=== PATIENT | female | born 1990 | race Caucasian/White ===

== ENCOUNTER 2016-10-21 21:31 | Emergency (ER) | payer SELFPAY ==
[2016-10-21 22:01] VITALS: BP 110/76; RESP 20; TEMP 100.7
[2016-10-21] MEDS ORDERED: IPRATROPIUM-ALBUTEROL 3 ML NEB INHALATION STA (22:21)
[2016-10-21] MEDS ORDERED: ACETAMINOPHEN TAB 500 MG TAB PO STA (22:32)
--- NOTE | 2016-10-21 22:36 | XR ---
EXAMINATION TYPE: XR chest 2V DATE OF EXAM: 10/21/2016 10:33 PM COMPARISON: NONE HISTORY: Cough and chest pain TECHNIQUE: Frontal and lateral views of the chest are obtained. FINDINGS: Heart and mediastinum are normal. Lungs are clear. Diaphragm is normal. Bony thorax and so ft tissues appear normal. IMPRESSION: Normal chest
[2016-10-21 22:54] VITALS: PULSE 84
--- NOTE | 2016-10-21 22:55 | ED ---
General Adult HPI - General Chief complaint: ENT Stated complaint: SOB Time Seen by Provider: 10/21/16 22:06 Source: patient, RN notes reviewed Mode of arrival: ambulatory Limitations: no limitations - History of Present Illness Initial comments: 26-year-old female presents emergency Department chief complaint of cough, fever started yesterday getting worse today. Patient's states her cough is nonproductive dry. Patient does have a history of asthma. She's had some wheezing. Denies any recent Tylenol Motrin. Patient states she has a nose denies sore throat, ear pain, headache, dizziness. Patient had multiple sick contacts. - Related Data Home Medications Medication Instructions Recorded Confirmed diphenhydrAMINE [Benadryl] 25 mg PO BID PRN 10/21/16 10/21/16 Previous Rx's Medication Instructions Recorded Oseltamivir [Tamiflu] 75 mg PO Q12HR #10 cap 10/21/16 Allergies Allergy/AdvReac Type Severity Reaction Status Date / Time No Known Allergies Allergy Verified 09/08/15 04:59 Review of Systems ROS Statement: Those systems with pertinent positive or pertinent negative responses have been documented in the HPI. ROS Other: All systems not noted in ROS Statement are negative. Past Medical History Past Medical History: Asthma History of Any Multi-Drug Resistant Organisms: None Reported Past Surgical History: No Surgical Hx Reported Past Psychological History: No Psychological Hx Reported Smoking Status: Current every day smoker Past Alcohol Use History: None Reported Past Drug Use History: None Reported General Exam Limitations: no limitations General appearance: alert, in no apparent distress Head exam: Present: atraumatic, normocephalic, normal inspection ENT exam: Present: normal exam, normal oropharynx, mucous membranes moist, TM's normal bilaterally, normal external ear exam Neck exam: Present: normal inspection, full ROM. Absent: tenderness, meningismus, lymphadenopathy Respiratory exam: Present: respiratory distress. Absent: wheezes, rales, rhonchi, stridor Cardiovascular Exam: Present: normal rhythm, tachycardia, normal heart sounds. Absent: systolic murmur, diastolic murmur, rubs, gallop, clicks Neurological exam: Present: alert, oriented X3, CN II-XII intact Skin exam: Present: warm, dry, intact, normal color. Absent: rash Course Vital Signs 10/21/16 10/21/16 21:58 22:49 Temperature 100.7 F H Pulse Rate 109 H 100 Respiratory 20 Rate Blood Pressure 110/76 O2 Sat by Pulse 98 Oximetry Medical Decision Making - Medical Decision Making 26-year-old female presented for fever cough. Patient has influenza B. Patient was started on Tamiflu. Return parameters were discussed. - Lab Data Lab Results 10/21/16 Range/Units 22:10 Influenza Type A RNA Not Detected (Not Detectd) Influenza Type B (PCR) Detected H (Not Detectd) Disposition Clinical Impression: Influenza B Disposition: HOME SELF-CARE Condition: Stable Instructions: Influenza (ED) Additional Instructions: Please return to the Emergency Department if symptoms worsen or any other concerns. Prescriptions: Oseltamivir [Tamiflu] 75 mg PO Q12HR #10 cap Time of Disposition: 22:54
== END 2016-10-21 23:00 | disposition home or self-care (01) ==
LOC: EC 21:31
DX: J11.1 Influenza due to unidentified influenza virus with other respiratory manifestations (principal); F17.200 Nicotine dependence, unspecified, uncomplicated; Z87.09 Personal history of other diseases of the respiratory system
CPT/HCPCS: 71020; 87502; 94640; 99285

== ENCOUNTER 2020-02-26 02:28 | Emergency (ER) | payer OTHER ==
[2020-02-26] MEDS ORDERED: SULFAMETH-TMP DS STARTER PACK 2 TAB BTL PO STA (02:45)
[2020-02-26] MEDS ORDERED: MUPIROCIN 2% OINT 22 GM TUBE TOPICAL STA (02:45)
[2020-02-26] MEDS ORDERED: SULFAMETHOX-TMP 800-160MG 1 EACH TAB PO STA ×2 (02:45→02:49)
--- NOTE | 2020-02-26 02:48 | ED ---
Skin/Abscess/FB HPI - General Chief complaint: Skin/Abscess/Foreign Body Stated complaint: MRSA Time Seen by Provider: 02/26/20 02:38 Source: patient, RN notes reviewed, old records reviewed Mode of arrival: ambulatory Limitations: no limitations - History of Present Illness Initial comments: This is a 21-year-old female DF she does have history of drug abuse coming in for what she feels like maybe rash and extremities, patient has history of different bacterial infections, some of these wounds have been draining. Wound and abscesses, history of same MD complaint: abscess/boil -: week(s) Location: generalized, face Severity: mild Severity scale (1-10): 3 Quality: aching Consistency: constant Improves with: none Worsens with: none Context: none Associated symptoms: denies other symptoms - Related Data Home Medications Medication Instructions Recorded Confirmed diphenhydrAMINE [Benadryl] 25 mg PO BID PRN 10/21/16 10/21/16 Previous Rx's Medication Instructions Recorded Oseltamivir [Tamiflu] 75 mg PO Q12HR #10 cap 10/21/16 Sulfamethox-Tmp 800-160Mg [Bactrim 2 tab PO BID #40 tab 02/26/20 DS 800-160 mg] Allergies Allergy/AdvReac Type Severity Reaction Status Date / Time No Known Allergies Allergy Verified 02/26/20 02:35 Review of Systems ROS Statement: Those systems with pertinent positive or pertinent negative responses have been documented in the HPI. ROS Other: All systems not noted in ROS Statement are negative. Past Medical History Past Medical History: Asthma Additional Past Medical History / Comment(s): kidney disease History of Any Multi-Drug Resistant Organisms: None Reported Past Surgical History: No Surgical Hx Reported Past Psychological History: Bipolar, Depression Smoking Status: Current every day smoker Past Alcohol Use History: None Reported Past Drug Use History: Heroin General Exam - General Exam Comments Initial Comments: Multiple areas of abscess on face hands legs that aren't draining Limitations: no limitations General appearance: alert, in no apparent distress Head exam: Present: atraumatic, normocephalic, normal inspection Eye exam: Present: normal appearance, PERRL, EOMI. Absent: scleral icterus, conjunctival injection, periorbital swelling ENT exam: Present: normal exam, mucous membranes moist Neck exam: Present: normal inspection. Absent: tenderness, meningismus, lymphadenopathy Respiratory exam: Present: normal lung sounds bilaterally. Absent: respiratory distress, wheezes, rales, rhonchi, stridor Cardiovascular Exam: Present: regular rate, normal rhythm, normal heart sounds. Absent: systolic murmur, diastolic murmur, rubs, gallop, clicks GI/Abdominal exam: Present: soft, normal bowel sounds. Absent: distended, tenderness, guarding, rebound, rigid Extremities exam: Present: normal inspection, full ROM, normal capillary refill. Absent: tenderness, pedal edema, joint swelling, calf tenderness Back exam: Present: normal inspection Neurological exam: Present: alert, oriented X3, CN II-XII intact Psychiatric exam: Present: normal affect, normal mood Skin exam: Present: warm, dry, intact, normal color. Absent: rash Course Vital Signs 02/26/20 02/26/20 02:30 03:09 Temperature 97.8 F 98.4 F Pulse Rate 86 71 Respiratory 20 15 Rate Blood Pressure 115/78 123/71 O2 Sat by Pulse 100 94 L Oximetry Medical Decision Making - Medical Decision Making 29 female DF for evaluation patient is multiple areas of infection and abscess will treat on antibiotics and discharged home Disposition Clinical Impression: Cellulitis, Facial abscess, Axillary abscess, Folliculitis Disposition: HOME SELF-CARE Condition: Good Instructions (If sedation given, give patient instructions): Folliculitis (ED), Abscess (ED) Prescriptions: Sulfamethox-Tmp 800-160Mg [Bactrim DS 800-160 mg] 2 tab PO BID #40 tab Is patient prescribed a controlled substance at d/c from ED?: No Referrals: None,Stated [Primary Care Provider] - 1-2 days
[2020-02-26 03:15] VITALS: BP 123/71; PULSE 71; RESP 15; TEMP 98.4
== END 2020-02-26 03:15 | disposition home or self-care (01) ==
LOC: EC 02:28
DX: L02.01 Cutaneous abscess of face (principal); L02.412 Cutaneous abscess of left axilla; L02.411 Cutaneous abscess of right axilla; L73.9 Follicular disorder, unspecified; L03.90 Cellulitis, unspecified; L02.416 Cutaneous abscess of left lower limb; L02.415 Cutaneous abscess of right lower limb; F19.11 Other psychoactive substance abuse, in remission; F17.200 Nicotine dependence, unspecified, uncomplicated
CPT/HCPCS: 99283

== ENCOUNTER 2020-03-31 18:45 | Emergency (ER) | payer OTHER ==
[2020-03-31 18:50] VITALS: BP 109/62; PULSE 86; RESP 20; TEMP 97.6
--- NOTE | 2020-03-31 19:39 | ED ---
General Adult HPI - General Chief complaint: Back Pain/Injury Stated complaint: back pain Time Seen by Provider: 03/31/20 19:06 Source: patient, RN notes reviewed Mode of arrival: ambulatory Limitations: no limitations - History of Present Illness Initial comments: 29-year-old female with a past medical history of asthma, kidney disease presents to the emergency department for chief complaint of right low back pain. Patient states that this pain started earlier today. Patient does not recall any injury. Patient states pain radiates down the right leg. States that worsens with movement. Patient denies fevers or chills. Patient denies numbness or tingling in the lower extremities. Denies weakness of the lower extremities.Patient has no other complaints at this time including shortness of breath, chest pain, abdominal pain, nausea or vomiting, headache, or visual changes. - Related Data Home Medications Medication Instructions Recorded Confirmed diphenhydrAMINE [Benadryl] 25 mg PO BID PRN 10/21/16 10/21/16 Previous Rx's Medication Instructions Recorded Oseltamivir [Tamiflu] 75 mg PO Q12HR #10 cap 10/21/16 Sulfamethox-Tmp 800-160Mg [Bactrim 2 tab PO BID #40 tab 02/26/20 DS 800-160 mg] Allergies Allergy/AdvReac Type Severity Reaction Status Date / Time No Known Allergies Allergy Verified 03/31/20 18:50 Review of Systems ROS Statement: Those systems with pertinent positive or pertinent negative responses have been documented in the HPI. ROS Other: All systems not noted in ROS Statement are negative. Past Medical History Past Medical History: Asthma Additional Past Medical History / Comment(s): kidney disease History of Any Multi-Drug Resistant Organisms: None Reported Past Surgical History: No Surgical Hx Reported Past Psychological History: Bipolar, Depression Smoking Status: Current every day smoker Past Alcohol Use History: Occasional Past Drug Use History: Heroin, Marijuana, Methamphetamine General Exam Limitations: no limitations General appearance: alert, in no apparent distress Head exam: Present: atraumatic, normocephalic, normal inspection Eye exam: Present: normal appearance, PERRL, EOMI. Absent: scleral icterus, conjunctival injection, periorbital swelling ENT exam: Present: normal exam, mucous membranes moist Neck exam: Present: normal inspection, full ROM. Absent: tenderness, meningismus, lymphadenopathy Respiratory exam: Present: normal lung sounds bilaterally. Absent: respiratory distress, wheezes, rales, rhonchi, stridor Cardiovascular Exam: Present: regular rate, normal rhythm, normal heart sounds. Absent: systolic murmur, diastolic murmur, rubs, gallop, clicks GI/Abdominal exam: Present: soft, normal bowel sounds. Absent: distended, tenderness, guarding, rebound, rigid Extremities exam: Present: normal capillary refill (cap refill < 2 seconds, DP pulses 2+ in BLE.) Back exam: Present: paraspinal tenderness (patient has lumbar paraspinal tenderness on the right side of the back.), other (patient able to ambulate to the restroom.). Absent: full ROM (patient has pain with more than 60 flexion of the lumbar spine.), CVA tenderness (R), CVA tenderness (L) Course Vital Signs 03/31/20 18:46 Temperature 97.6 F Pulse Rate 86 Respiratory 20 Rate Blood Pressure 109/62 O2 Sat by Pulse 98 Oximetry Medical Decision Making - Medical Decision Making 29-year-old female presents for right-sided low back pain. Pain is reproducible on exam with palpation along the right lumbar paraspinal muscles. No lumbar spine tenderness. No injury. Pain worsens with movement. Appears m usculoskeletal in nature. Patient is able take ambulate without difficulty. She does have some mild radiating pain down the right leg. Patient has not had any fevers or chills. Patient is an IV drug user and used meth prior to arrival. Given this history Patient was informed that if she has any fever she needs to immediately return to the emergency room and she is understanding of this. Patient' did have mild improvement in pain with IM injections. Nonnarcotic medications were given given history of IV drug abuse. Patient will be given steroids given mild radiating pain down the right leg. She will follow up with primary care return here for worsening symptoms. - Lab Data Lab Results 03/31/20 03/31/20 Range/Units 19:25 19:25 Urine Color Yellow Urine Appearance Cloudy H (Clear) Urine pH 7.5 (5.0-8.0) Ur Specific [place] 1.020 (1.001-1.035) Urine Protein Negative (Negative) Urine Glucose (UA) Negative (Negative) Urine Ketones Negative (Negative) Urine Blood Negative (Negative) Urine Nitrite Negative (Negative) Urine Bilirubin Negative (Negative) Urine Urobilinogen <2.0 (<2.0) mg/dL Ur Leukocyte Esterase Negative (Negative) Urine RBC 1 (0-5) /hpf Urine WBC 1 (0-5) /hpf Ur Squamous Epith Cells 2 (0-4) /hpf Amorphous Sediment Rare H (None) /hpf Urine Mucus Rare H (None) /hpf Urine HCG, Qual Not Detected (Not Detectd) Disposition Clinical Impression: Mechanical back pain Disposition: HOME SELF-CARE Condition: Good Instructions (If sedation given, give patient instructions): Acute Low Back Pain (ED) Additional Instructions: please take Tylenol for pain. Take steroid as directed. Do not take Motrin while taking steroid as this could cause erosion of stomach lining. Follow-up with your doctor in one to 2 days. Return here to the emergency room for any worsening symptoms. This includes fevers as discussed with you. Is patient prescribed a controlled substance at d/c from ED?: No Referrals: Mayra Jarquin MD [REFERRING] - 1-2 days Time of Disposition: 20:17
[2020-03-31 19:44] LABS: Amorphous Sediment,Urine Rare /hpf; Appearance,Urine Cloudy (Clear); Bilirubin,Urine Negative (Negative); Blood,Urine Negative (Negative); Color,Urine Yellow; Glucose,Urine (UA) Negative (Negative); Ketones,Urine Negative (Negative); Leukocyte Esterase,Urine Negative (Negative); Mucus,Urine Rare /hpf; Nitrite,Urine Negative (Negative); PH, Urine 7.5 (5.0-8.0); Protein,Urine Negative (Negative); RBC,Urine 1 /hpf (0-5); Squamous Epithelial Cell,Urine 2 /hpf (0-4); Urobilinogen,Urine <2.0 mg/dL (<2.0); WBC,Urine 1 /hpf (0-5)
[2020-03-31] MEDS ORDERED: KETOROLAC 30 MG/ML 1 ML VIAL IM STA (19:45)
[2020-03-31] MEDS ORDERED: ORPHENADRINE 30 MG/ML 2 ML VIAL IM STA (19:45)
== END 2020-03-31 20:28 | disposition home or self-care (01) ==
LOC: EC 18:45
DX: M54.5 Low back pain (principal); M79.604 Pain in right leg; F17.200 Nicotine dependence, unspecified, uncomplicated; X58.XXXA Exposure to other specified factors, initial encounter
CPT/HCPCS: 81001; 81025; 99283; 96372 ×2; J2360; J1885

== ENCOUNTER 2020-06-26 21:12 | Emergency (ER) | payer OTHER ==
[2020-06-26 21:19] VITALS: BP 106/64; PULSE 94; RESP 20; TEMP 98.3
[2020-06-26 22:22] LABS: Appearance,Urine Cloudy (Clear); Bacteria,Urine Few /hpf; Bilirubin,Urine Negative (Negative); Blood,Urine Negative (Negative); Color,Urine Yellow; Glucose,Urine (UA) Negative (Negative); Ketones,Urine Negative (Negative); Leukocyte Esterase,Urine Moderate (Negative); Mucus,Urine Rare /hpf; Nitrite,Urine Negative (Negative); PH, Urine 5.5 (5.0-8.0); Protein,Urine Negative (Negative); RBC,Urine 3 /hpf (0-5); Specific Gravity,Urine 1.019 (1.001-1.035); Squamous Epithelial Cell,Urine 40 /hpf (0-4); Urobilinogen,Urine <2.0 mg/dL (<2.0); WBC,Urine 22 /hpf (0-5)
[2020-06-26 22:42] LABS: Amphetamine Screen,Urine Detected (NotDetected); Barbiturate Screen,Urine Not Detected (NotDetected); Benzodiazepines Screen,Urine Not Detected (NotDetected); Cocaine Screen,Urine Not Detected (NotDetected); Methadone Screen, Urine Not Detected (NotDetected); Opiate Screen,Urine Not Detected (NotDetected); Oxycodone Screen, Urine Not Detected (NotDetected); Phencyclidine Screen,Urine Not Detected (NotDetected); Tricyclic Antidepressant,Urine Not Detected (NotDetected); Urn Cannabinoid Scrn Not Detected (NotDetected)
--- NOTE | 2020-06-26 22:56 | ED ---
Abdominal Pain HPI - General Chief Complaint: Abdominal Pain Stated Complaint: test, ABD pain Time Seen by Provider: 06/26/20 21:29 Source: patient Mode of arrival: ambulatory Limitations: no limitations - History of Present Illness Initial Comments: Patient is a 30-year-old female presenting to the emergency Department with complaints of a possible and feeling itchy. Patient states she took an at-home test a week ago and it was positive for she has yet to reconfirm it. She denies any abdominal pain, some occasional cramping. She denies any vaginal bleeding or discharge. She denies any nausea, vomiting. She states for the last week she's been having increased itchiness in her extremities. She believes it may be from a changing her laundry detergent at home. She denies recent fever, chills, chest pain, shortness of breath, abdominal pain. She has no further complaints at this time. On arrival to the ER, her vitals are stable. - Related Data Home Medications Medication Instructions Recorded Confirmed diphenhydrAMINE [Benadryl] 25 mg PO BID PRN 10/21/16 10/21/16 Previous Rx's Medication Instructions Recorded Oseltamivir [Tamiflu] 75 mg PO Q12HR #10 cap 10/21/16 Sulfamethox-Tmp 800-160Mg [Bactrim 2 tab PO BID #40 tab 02/26/20 DS 800-160 mg] predniSONE 50 mg PO DAILY #5 tablet 03/31/20 Allergies Allergy/AdvReac Type Severity Reaction Status Date / Time No Known Allergies Allergy Verified 06/26/20 21:19 Review of Systems ROS Statement: Those systems with pertinent positive or pertinent negative responses have been documented in the HPI. ROS Other: All systems not noted in ROS Statement are negative. Past Medical History Past Medical History: Asthma, Renal Disease Additional Past Medical History / Comment(s): kidney disease History of Any Multi-Drug Resistant Organisms: None Reported Past Surgical History: No Surgical Hx Reported Past Psychological History: Bipolar, Depression Smoking Status: Current every day smoker Past Alcohol Use History: Occasional Past Drug Use History: Heroin, Marijuana, Methamphetamine General Exam - General Exam Comments Initial Comments: GENERAL: Patient appears to be under the influence of some substance, no acute distress, she cannot sit still, strong smell of marijuana. HEAD: Atraumatic, normocephalic. EYES: Pupils equal round and reactive to light, extraocular movements intact, sclera anicteric, conjunctiva are normal. Eyelids were unremarkable. ENT: TMs normal, nares patent, oropharynx clear without exudates. Moist mucous membranes. NECK: Normal range of motion, supple without lymphadenopathy or JVD. LUNGS: Unlabored respirations. Breath sounds clear to auscultation bilaterally and equal. No wheezes rales or rhonchi. HEART: Regular rate and rhythm without murmurs, rubs or gallops. ABDOMEN: Soft, nontender, normoactive bowel sounds. No guarding, no rebound. No masses appreciated. : Deferred MUSCULOSKELETAL: Normal extremities with adequate strength and normal range of motion, no pitting or edema. No clubbing or cyanosis. NEUROLOGICAL: Patient is alert and oriented x 3. Normal speech, normal gait. PSYCH: Seems anxious, last cystoscopy. SKIN: Warm, Dry, normal turgor, no rashes or lesions noted. Limitations: no limitations Course Vital Signs 06/26/20 21:16 Temperature 98.3 F Pulse Rate 94 Respiratory 20 Rate Blood Pressure 106/64 O2 Sat by Pulse 99 Oximetry Medical Decision Making - Medical Decision Making Patient is a 30-year-old female here to confirm a also complains of itchiness for the past week. Patient's vital signs are stable. Patient's urine did reveal a positive hCG, no signs of an infection. She is also positive for amphetamines and meth. Patient was not very patient Requesting to be discharged. I did discuss these findings with the patient. Recommended following up with [facility], discontinue drug use and may take Benadryl for her itchiness. Patient is in agreement with this plan of care. She is stable for discharge. - Lab Data Lab Results 06/26/20 06/26/20 Range/Units 21:59 21:59 Urine Color Yellow Urine Appearance Cloudy H (Clear) Urine pH 5.5 (5.0-8.0) Ur Specific [place] 1.019 (1.001-1.035) Urine Protein Negative (Negative) Urine Glucose (UA) Negative (Negative) Urine Ketones Negative (Negative) Urine Blood Negative (Negative) Urine Nitrite Negative (Negative) Urine Bilirubin Negative (Negative) Urine Urobilinogen <2.0 (<2.0) mg/dL Ur Leukocyte Esterase Moderate H (Negative) Urine RBC 3 (0-5) /hpf Urine WBC 22 H (0-5) /hpf Ur Squamous Epith Cells 40 H (0-4) /hpf Urine Bacteria Few H (None) /hpf Urine Mucus Rare H (None) /hpf Urine HCG, Qual Detected (Not Detectd) Urine Opiates Screen Not Detected (NotDetected) Ur Oxycodone Screen Not Detected (NotDetected) Urine Methadone Screen Not Detected (NotDetected) Ur Propoxyphene Screen Not Detected (NotDetected) Ur Barbiturates Screen Not Detected (NotDetected) U Tricyclic Antidepress Not Detected (NotDetected) Ur Phencyclidine Scrn Not Detected (NotDetected) Ur Amphetamines Screen Detected H (NotDetected) U Methamphetamines Scrn Detected H (NotDetected) U Benzodiazepines Scrn Not Detected (NotDetected) Urine Cocaine Screen Not Detected (NotDetected) U Marijuana (THC) Screen Not Detected (NotDetected) Disposition Clinical Impression: Disposition: HOME SELF-CARE Condition: Stable Instructions (If sedation given, give patient instructions): (ED) Additional Instructions: Please return to the Emergency Department if symptoms worsen or any other concerns. Follow-up with [facility]. Discontinue drug use. Is patient prescribed a controlled substance at d/c from ED?: No Referrals: None,Stated [Primary Care Provider] - 1-2 days Elizabeth Banda DO [Doctor of Osteopathic Medicine] - 1-2 days
== END 2020-06-26 23:02 | disposition home or self-care (01) ==
LOC: EC 21:12
DX: O26.891 Other specified pregnancy related conditions, first trimester (principal); L29.9 Pruritus, unspecified; O99.331 Smoking (tobacco) complicating pregnancy, first trimester; F17.200 Nicotine dependence, unspecified, uncomplicated; Z3A.01 Less than 8 weeks gestation of pregnancy
CPT/HCPCS: 80306; 81001; 81025; 87086; 99284

== ENCOUNTER 2021-01-28 20:13 | Inpatient (IN) | payer OTHER ==
[2021-01-28] MEDS: OXYTOCIN 30 UNITS/500 ML NS 30 UNIT in SALINE 1 500ML.BAG IV SCH ×2 (20:40→21:15)
[2021-01-28] MEDS ORDERED: diphenhydrAMINE 25 MG CAP PO PRN (20:52)
[2021-01-28] MEDS ORDERED: HYDROCORTISONE 2.5% RECTAL CREAM 30 GM TUBE RECTAL PRN (20:52)
[2021-01-28] MEDS ORDERED: SIMETHICONE 80 MG CHEWABLE PO PRN (20:52)
[2021-01-28] MEDS ORDERED: BENZOCAINE/MENTHOL SPRAY 1 GM/SPRAY AEROSOL TOPICAL PRN (20:52)
[2021-01-28] MEDS ORDERED: ACETAMINOPHEN TAB 325 MG TAB PO PRN (20:52)
[2021-01-28] MEDS ORDERED: diphenhydrAMINE 50 MG/ML 1 ML VIAL IVP PRN ×2 (20:52)
[2021-01-28] MEDS ORDERED: LANOLIN CREAM 5 GM TUBE TOPICAL PRN (20:52)
[2021-01-28] MEDS ORDERED: diphenhydrAMINE 50 MG CAP PO PRN (20:52)
--- NOTE | 2021-01-28 21:02 | P.HPOB ---
History of Present Illness H&P Date: 01/28/21 Chief Complaint: Spontaneous home delivery This is a 30 year old 2 para 0010 woman who presents by EMS after having delivered a baby at home. Placenta undelivered. Patient is a obstetrical patient at [facility] and has received routine care there. She reports an estimated due date of 02/09/2021 which makes her 38 and one sevenths weeks today. She reports that due date was based on an early ultrasound. She denies any problems in the . She reports having had intercourse last night with some bleeding. Throughout the day today she reports not feeling well. She did pass a large clot approximately 2 hours prior to delivering the baby. She had severe abdominal pain and pelvic pressure which she thought was the need to have a bowel movement. She then subsequently delivered a baby unattended at home. EMS was called and she was brought to the hospital. She has not yet delivered a placenta. She is uncertain when her water broke. She delivered of a liveborn male weighing 5 lbs. 14 oz., 2670 g. She reports some recreational drug use including marijuana and amphetamines approximately 3 weeks ago. She denies any drug use in the last several days. She reports otherwise feeling well with no history of recent headaches, visual changes, nausea, vomiting, fevers, chills, rupture of membranes or vaginal bleeding other than that described above. Obstetric history significant for spontaneous miscarriages a teenager. Review of Systems All systems: negative Past Medical History Past Medical History: Asthma, Renal Disease Additional Past Medical History / Comment(s): kidney disease History of Any Multi-Drug Resistant Organisms: None Reported Past Surgical History: No Surgical Hx Reported Past Psychological History: Bipolar, Depression Smoking Status: Current every day smoker Past Alcohol Use History: Occasional Past Drug Use History: Heroin, Marijuana, Methamphetamine Medications and Allergies Home Medications Medication Instructions Recorded Confirmed Type No Known Home Medications 01/28/21 01/28/21 History Allergies Allergy/AdvReac Type Severity Reaction Status Date / Time No Known Allergies Allergy Verified 01/28/21 20:26 Exam Intake and Output 01/28/21 01/28/21 01/28/21 06:59 14:59 22:59 Other: Weight 91.172 kg Upon my initial evaluation this is a pale appearing female who is visibly uncomfortable. On initial pelvic examination on the placenta is in the vagina. The patient is placed in modified lithotomy position and instructed to push. An intact, three-vessel cord placenta was expressed. There is meconium staining of the membranes. There is greater than 50% of dark adherent clot over the surface of the placenta. The uterus is massaged and is noted to be firm at the level of the umbilicus. The vagina and cervix are inspected and no lacerations are noted. There is an abrasion on the right inner labia. Assessment and Plan (1) Spontaneous vaginal delivery Narrative/Plan: Unattended at home. Current Visit: Yes Status: Acute Code(s): O80 - ENCOUNTER FOR FULL-TERM UNCOMPLICATED DELIVERY SNOMED Code(s): 930249635 Plan: This is a 30-year-old 2 now para 1011 woman who is admitted following an unattended delivery at home. Placenta is delivered. Clinical history is consistent with possible abruption. labs and urine tox screen have been ordered. Records are requested. Placenta to pathology. consulting services project manager consult. Infant to be assessed by special care nursery staff however appears term and in good condition.
[2021-01-28] MEDS: IBUPROFEN 600 MG TAB PO SCH (21:14)
[2021-01-28 21:40] LABS: Basophils % (A) 0 %; Eosinophils % (A) 0 %; HCT 30.9 % (34.0-46.0); HGB 10.9 gm/dL (11.4-16.0); Lymphocytes # (A) 1.2 k/uL (1.0-4.8); Lymphocytes % (A) 6 %; MCH 31.7 pg (25.0-35.0); MCHC 35.4 g/dL (31.0-37.0); MCV 89.5 fL (80.0-100.0); Mean Platelet Volume 7.8; Monocytes # (A) 0.5 k/uL (0-1.0); Monocytes % (A) 2 %; Neutrophils # (A) 17.6 k/uL (1.3-7.7); Neutrophils % (A) 91 %; Platelet Count 299 k/uL (150-450); RBC 3.45 m/uL (3.80-5.40); RDW 13.2 % (11.5-15.5); WBC 19.3 k/uL (3.8-10.6)
[2021-01-29 02:29] LABS: Basophils % (A) 0 %; Eosinophils % (A) 0 %; HGB 9.6 gm/dL (11.4-16.0); Lymphocytes # (A) 2.3 k/uL (1.0-4.8); Lymphocytes % (A) 13 %; MCH 31.7 pg (25.0-35.0); MCHC 35.4 g/dL (31.0-37.0); MCV 89.4 fL (80.0-100.0); Mean Platelet Volume 7.3; Monocytes # (A) 0.8 k/uL (0-1.0); Monocytes % (A) 4 %; Neutrophils # (A) 14.9 k/uL (1.3-7.7); Neutrophils % (A) 82 %; Platelet Count 302 k/uL (150-450); RBC 3.02 m/uL (3.80-5.40); RDW 13.2 % (11.5-15.5); WBC 18.2 k/uL (3.8-10.6)
[2021-01-29] MEDS: IBUPROFEN 600 MG TAB PO SCH ×3 (04:14→16:58)
[2021-01-29 04:23] LABS: Appearance,Urine Cloudy (Clear); Bilirubin,Urine Negative (Negative); Blood,Urine Large (Negative); Color,Urine Red; Glucose,Urine (UA) 3+ (Negative); Leukocyte Esterase,Urine Large (Negative); Nitrite,Urine Negative (Negative); Protein,Urine 2+ (Negative); RBC,Urine >182 /hpf (0-5); Specific Gravity,Urine 1.024 (1.001-1.035); Squamous Epithelial Cell,Urine 3 /hpf (0-4); Urobilinogen,Urine <2.0 mg/dL (<2.0); WBC,Urine 86 /hpf (0-5)
[2021-01-29 04:35] LABS: Ketones,Urine 2+ (Negative)
[2021-01-29 04:36] LABS: Amphetamine Screen,Urine Not Detected (NotDetected); Barbiturate Screen,Urine Not Detected (NotDetected); Benzodiazepines Screen,Urine Not Detected (NotDetected); Cocaine Screen,Urine Not Detected (NotDetected); Methadone Screen, Urine Not Detected (NotDetected); Opiate Screen,Urine Not Detected (NotDetected); Oxycodone Screen, Urine Not Detected (NotDetected); Phencyclidine Screen,Urine Not Detected (NotDetected); Tricyclic Antidepressant,Urine Not Detected (NotDetected); Urn Cannabinoid Scrn Detected (NotDetected)
[2021-01-29] MEDS: SENNOSIDES-DOCUSATE SODIUM 1 EACH TAB PO SCH ×2 (08:11→19:26)
--- NOTE | 2021-01-29 16:03 | P.PNOBGVD ---
Subjective - Subjective Principal diagnosis: Unattended delivery Interval history: Feeling well overnight, some cramping. Patient reports: Reports appetite normal, Reports voiding normally, Reports pain well controlled, Reports ambulating normally : doing well (In special care nursery) Objective - Latest Vital Signs Latest vital signs: Vital Signs Temp Pulse Resp BP 01/29/21 08:00 98.7 F 98 14 108/71 01/29/21 03:30 98.1 F 108 H 16 107/71 01/28/21 22:45 96.6 F L 108 H 16 127/60 01/28/21 22:15 93 16 114/70 01/28/21 21:45 90 16 113/72 01/28/21 21:30 76 16 110/69 01/28/21 21:15 90 16 121/67 01/28/21 21:00 71 16 115/73 01/28/21 20:45 97.1 F L 70 16 105/63 01/28/21 20:35 96.7 F L 131 H 18 138/67 Intake and Output 01/29/21 01/29/21 01/29/21 06:59 14:59 22:59 Other: # Voids 1 2 - Exam Extremities: Present: normal, tenderness. Absent: edema Abdomen: Present: normal appearance, soft. Absent: tenderness Uterus: Present: normal, firm. Absent: tenderness - Labs Labs: Abnormal Lab Results - Last 24 Hours (Table) 01/28/21 01/29/21 01/29/21 Range/Units 21:28 02:06 04:10 WBC 19.3 H 18.2 H (3.8-10.6) k/uL RBC 3.45 L 3.02 L (3.80-5.40) m/uL Hgb 10.9 L 9.6 L (11.4-16.0) gm/dL Hct 30.9 L 27.0 L (34.0-46.0) % Neutrophils # 17.6 H 14.9 H (1.3-7.7) k/uL Urine Appearance Cloudy H (Clear) Urine Protein 2+ H (Negative) Urine Glucose (UA) 3+ H (Negative) Urine Ketones 2+ H (Negative) Urine Blood Large H (Negative) Ur Leukocyte Esterase Large H (Negative) Urine RBC >182 H (0-5) /hpf Urine WBC 86 H (0-5) /hpf U Methamphetamines Scrn Detected H (NotDetected) U Marijuana (THC) Screen Detected H (NotDetected) Assessment and Plan (1) Spontaneous vaginal delivery Current Visit: Yes Status: Acute Code(s): O80 - ENCOUNTER FOR FULL-TERM UNCOMPLICATED DELIVERY SNOMED Code(s): 100461921 Plan: day #1 status post on attended home vaginal delivery. Recovering well. CPS involved. in special care nursery. Anticipate discharge home tomorrow.
[2021-01-29 20:08] LABS: HIV 2 AB Non-Reactive (Non-Reactive); HIV AB P24 Non-Reactive (Non-Reactive); HIV P24 AG Non-Reactive (Non-Reactive)
[2021-01-30] MEDS: IBUPROFEN 600 MG TAB PO SCH ×4 (00:50→15:20)
[2021-01-30] MEDS: SENNOSIDES-DOCUSATE SODIUM 1 EACH TAB PO SCH (07:37)
[2021-01-30 07:40] VITALS: BP 118/79; PULSE 73; RESP 16; TEMP 98.3
--- NOTE | 2021-01-30 08:14 | P.DS ---
Providers Date of admission: 01/28/21 20:13 Expected date of discharge: 01/30/21 Attending physician: Kaye Billings Primary care physician: Stated None - Discharge Diagnosis(es) (1) Spontaneous vaginal delivery Current Visit: Yes Status: Acute Hospital Course: This is a 30-year-old 2 now para 1011 woman who was admitted following and unattended spontaneous vaginal delivery at term at home. Following admission she and the infant were assessed. weighed 5 lbs. 14 oz. which is approximately 10th percentile for stated gestational age of approximately 38 weeks. Placenta had not yet delivered upon admission. I delivered the placenta without incident. Meconium staining of the membranes was appreciated as well as large portion of the placenta with dense adherent clot consistent with abruption. The infant was admitted to special care nursery for observation and support. The patient's course was otherwise unremarkable. Her vital signs were stable and her lochia was within normal limits. She is formula feeding. Social work and CPS involved. 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 Patient Condition at Discharge: Good Plan - Discharge Summary New Discharge Prescriptions: No Action No Known Home Medications Discharge Medication List No Known Home Medications 01/28/21 [History] Follow up Appointment(s)/Referral(s): Anyi Becerra MD [STAFF PHYSICIAN] - 4 Weeks Activity/Diet/Wound Care/Special Instructions: Follow-up in the office in 4-6 weeks . Call your water maintenance supervisor with any concerning signs or symptoms including heavy vaginal bleeding, severe abdominal pain, fever greater than 100.5, swelling or redness of the lower extremities, foul vaginal discharge, or signs of depression. Nothing in the vagina for 6 weeks after delivery, specifically no intercourse. Discharge Disposition: HOME SELF-CARE
== END 2021-01-30 15:49 | disposition home or self-care (01) | DRG 776 ==
LOC: 4FBP 20:13
PROVIDERS: ADMIT Obstetrics & Gynecology; ATTEND Obstetrics & Gynecology
DX: Z39.0 Encounter for care and examination of mother immediately after delivery (principal); Z37.0 Single live birth; O45.90 Premature separation of placenta, unspecified, unspecified trimester; O77.0 Labor and delivery complicated by meconium in amniotic fluid; F17.200 Nicotine dependence, unspecified, uncomplicated; O99.334 Smoking (tobacco) complicating childbirth
CPT/HCPCS: 80306; 81001; 85025; 86850; 86900; 86901; 87390; 88307

== ENCOUNTER 2021-03-25 11:53 | Emergency (ER) | payer OTHER ==
[2021-03-25 12:05] VITALS: BP 140/80; PULSE 75; RESP 16; TEMP 98
[2021-03-25] MEDS ORDERED: TOBRAMYCIN 0.3% OPHTH DROPS 5 ML BTL LEFT EYE STA (12:19)
--- NOTE | 2021-03-25 12:23 | ED ---
General Adult HPI - General Chief complaint: Skin/Abscess/Foreign Body Stated complaint: cyst in armpit, lt eye problem Time Seen by Provider: 03/25/21 12:09 Source: patient, RN notes reviewed Mode of arrival: ambulatory Limitations: no limitations - History of Present Illness Initial comments: 30-year-old female presents emergency from with chief complaint of left eye irritation, right arm abscess. Patient states that she started last couple days with left eye redness she states diagnosis stye which is concerned because she noticed an abscess in her right axilla which has ruptured. She does have a history of MRSA denies any. Chills no blurred vision no other complaints. - Related Data Previous Rx's Medication Instructions Recorded Sulfamethox-Tmp 800-160Mg [Bactrim 1 each PO Q12HR #20 tab 03/25/21 Ds] Allergies Allergy/AdvReac Type Severity Reaction Status Date / Time No Known Allergies Allergy Verified 03/25/21 12:03 Review of Systems ROS Statement: Those systems with pertinent positive or pertinent negative responses have been documented in the HPI. ROS Other: All systems not noted in ROS Statement are negative. Past Medical History Past Medical History: Asthma, Renal Disease Additional Past Medical History / Comment(s): kidney disease History of Any Multi-Drug Resistant Organisms: None Reported Date of last positivie culture/infection: 2019 MDRO Source:: Face, and abdomen Past Surgical History: No Surgical Hx Reported Additional Past Surgical History / Comment(s): [place] tooth extraction Past Anesthesia/Blood Transfusion Reactions: No Reported Reaction Past Psychological History: Bipolar, Depression Smoking Status: Current every day smoker Past Alcohol Use History: Occasional Past Drug Use History: Heroin, Marijuana, Methamphetamine - Past Family History Mother Family Medical History: No Reported History General Exam Limitations: no limitations General appearance: alert, in no apparent distress Head exam: Present: atraumatic, normocephalic, normal inspection Eye exam: Present: PERRL, EOMI. Absent: normal appearance (Left eye upper and lower medial eyelid swelling, small stye noted), scleral icterus, conjunctival injection, periorbital swelling ENT exam: Present: normal exam, normal oropharynx, mucous membranes moist Neck exam: Present: normal inspection, full ROM. Absent: tenderness, meningismus, lymphadenopathy Respiratory exam: Present: normal lung sounds bilaterally. Absent: respiratory distress, wheezes, rales, rhonchi, stridor Cardiovascular Exam: Present: regular rate, normal rhythm, normal heart sounds. Absent: systolic murmur, diastolic murmur, rubs, gallop, clicks Skin exam: Present: other (Erythematous base open sore right axilla) Course Vital Signs 03/25/21 12:03 Temperature 98.0 F Pulse Rate 75 Respiratory 16 Rate Blood Pressure 140/80 O2 Sat by Pulse 99 Oximetry Medical Decision Making - Medical Decision Making Patient has an open draining abscess of the right axilla was started on oral antibiotics Compresses also noted to have a left eye stye will be given Tobrex eye drops continue warm compresses Disposition Clinical Impression: Hordeolum of left eye, Abscess of right axilla Disposition: HOME SELF-CARE Condition: Stable Instructions (If sedation given, give patient instructions): Abscess (ED) Additional Instructions: Use Tobrex eyedrops 1 drop every 4 hours for 7 days Please return to the Emergency Department if symptoms worsen or any other concerns. Prescriptions: Sulfamethox-Tmp 800-160Mg [Bactrim Ds] 1 each PO Q12HR #20 tab Is patient prescribed a controlled substance at d/c from ED?: No Referrals: None,Stated [Primary Care Provider] - 1-2 days Time of Disposition: 12:22
== END 2021-03-25 13:06 | disposition home or self-care (01) ==
LOC: EC 11:53
DX: H00.015 Hordeolum externum left lower eyelid (principal); H00.014 Hordeolum externum left upper eyelid; L02.411 Cutaneous abscess of right axilla; F17.200 Nicotine dependence, unspecified, uncomplicated; J45.909 Unspecified asthma, uncomplicated
CPT/HCPCS: 99283

== ENCOUNTER 2021-05-31 19:05 | Emergency (ER) | payer OTHER ==
[2021-05-31 19:51] VITALS: BP 116/75; PULSE 64; RESP 18; TEMP 98.5
[2021-05-31] MEDS ORDERED: ONDANSETRON 4 MG ODT STARTER PACK 2 TAB BTL PO STA (20:17)
--- NOTE | 2021-05-31 20:19 | ED ---
Nausea/Vomiting/Diarrhea HPI - General Chief complaint: Nausea/Vomiting/Diarrhea Stated complaint: Pain on right side Time Seen by Provider: 05/31/21 20:06 Source: patient Mode of arrival: ambulatory Limitations: no limitations - History of Present Illness Initial comments: 30-year-old female patient presents to the emergency department today for evaluation after having nausea and vomiting this morning. Patient states that she has not had any vomiting this evening and has been able to tolerate food and fluid however her work is going to require note to return tomorrow. Patient states she also has a small abscess to the right axillary region. States she has had abscesses to this area before and does not want to get out of control. States she has taken Bactrim in the past with success. She denies any fever or chills. Denies abdominal pain. States did have an episode of diarrhea. Denies any hematochezia, melena, or hematemesis. Denies any new medications. Denies chance of . Patient denies any recent rash, cough, shortness of breath, chest pain, constipation, back pain, numbness, tingling, dizziness, weakness, hematuria, dysuria, urinary urgency, urinary frequency, headache, visual changes, or any other complaints. - Related Data Previous Rx's Medication Instructions Recorded Sulfamethox-Tmp 800-160Mg [Bactrim 1 each PO Q12HR #20 tab 03/25/21 Ds] Ondansetron [Zofran ODT] 4 mg PO Q8HR PRN #10 tab 05/31/21 Sulfamethoxazole/Trimethoprim 1 each PO BID #20 tablet 05/31/21 [Bactrim DS 800-160 mg] Allergies Allergy/AdvReac Type Severity Reaction Status Date / Time No Known Allergies Allergy Verified 05/31/21 19:51 Review of Systems ROS Statement: Those systems with pertinent positive or pertinent negative responses have been documented in the HPI. ROS Other: All systems not noted in ROS Statement are negative. Past Medical History Past Medical History: Asthma, Renal Disease Additional Past Medical History / Comment(s): kidney disease History of Any Multi-Drug Resistant Organisms: MRSA Date of last positivie culture/infection: 2019 MDRO Source:: Face, and abdomen Past Surgical History: No Surgical Hx Reported Additional Past Surgical History / Comment(s): [place] tooth extraction Past Anesthesia/Blood Transfusion Reactions: No Reported Reaction Past Psychological History: Bipolar, Depression Smoking Status: Current every day smoker Past Alcohol Use History: Occasional Past Drug Use History: Heroin, Marijuana, Methamphetamine - Past Family History Mother Family Medical History: No Reported History General Exam Limitations: no limitations General appearance: alert, in no apparent distress, other (This is a well- developed, well-nourished adult female patient in no acute distress. Vital signs upon presentation are temperature 98.5F, pulse 64, respirations 18, blood pressure 116/75, pulse ox 97% on room air.) Eye exam: Present: normal appearance, PERRL, EOMI. Absent: scleral icterus, conjunctival injection, periorbital swelling ENT exam: Present: normal exam, normal oropharynx, mucous membranes moist Respiratory exam: Present: normal lung sounds bilaterally. Absent: respiratory distress, wheezes, rales, rhonchi, stridor Cardiovascular Exam: Present: regular rate, normal rhythm, normal heart sounds. Absent: systolic murmur, diastolic murmur, rubs, gallop, clicks GI/Abdominal exam: Present: soft, normal bowel sounds. Absent: distended, tenderness, guarding, rebound, rigid Extremities exam: Present: full ROM, normal capillary refill, other (There is very small abscess noted to the right axillary region. No drainage. No fluctuance. No surrounding erythema.). Absent: tenderness, pedal edema, joint swelling, calf tenderness Neurological exam: Present: alert, oriented X3, CN II-XII intact Psychiatric exam: Present: normal affect, normal mood Skin exam: Present: warm, dry, intact, normal color. Absent: rash Course Vital Signs 05/31/21 19:48 Temperature 98.5 F Pulse Rate 64 Respiratory 18 Rate Blood Pressure 116/75 O2 Sat by Pulse 97 Oximetry Medical Decision Making - Medical Decision Making 30-year-old female patient percents to the emergency department requesting work no after having nausea vomiting diarrhea this morning. She has tolerated oral intake since. Declines testing. She also is requesting antibiotic for right axillary abscess. She is instructed to apply warm compresses. She'll be given prescription for Bactrim. She is instructed to follow-up with her primary care physician for recheck in 1-2 days. Return parameters were discussed in detail. She verbalizes understanding and agrees with this plan. My attending is Dr. Morataya. Disposition Clinical Impression: Nausea and vomiting, Abscess of right axilla Disposition: HOME SELF-CARE Condition: Good Instructions (If sedation given, give patient instructions): Acute Nausea and Vomiting (ED), Abscess (ED) Additional Instructions: Warm compresses to the right armpit. Complete antibiotic prescription in full. Take Zofran as needed for nausea. Follow-up with primary care physician for recheck in 1-2 days. Return for any new, worsening, or concerning symptoms. Prescriptions: Sulfamethoxazole/Trimethoprim [Bactrim DS 800-160 mg] 1 each PO BID #20 tablet Ondansetron [Zofran ODT] 4 mg PO Q8HR PRN #10 tab PRN Reason: Nausea Is patient prescribed a controlled substance at d/c from ED?: No Referrals: None,Stated [Primary Care Provider] - 1-2 days Time of Disposition: 20:19
== END 2021-05-31 20:36 | disposition home or self-care (01) ==
LOC: EC 19:05
DX: L02.411 Cutaneous abscess of right axilla (principal); R11.2 Nausea with vomiting, unspecified; R19.7 Diarrhea, unspecified; F17.200 Nicotine dependence, unspecified, uncomplicated; J45.909 Unspecified asthma, uncomplicated
CPT/HCPCS: 99283; S0119

== ENCOUNTER 2021-10-10 06:06 | Emergency (ER) | payer OTHER ==
[2021-10-10] MEDS ORDERED: ALBUTEROL NEBULIZED 2.5 MG/3 ML INHALATION STA (06:07)
[2021-10-10] MEDS ORDERED: SODIUM CHLORIDE 0.9% 1,000 ML IV ONE (06:11)
[2021-10-10 06:14] VITALS: TEMP 98.1
--- NOTE | 2021-10-10 06:16 | ED ---
General Adult HPI - General Stated complaint: Allergic Reaction Time Seen by Provider: 10/10/21 06:06 Source: patient, RN notes reviewed, old records reviewed - History of Present Illness Initial comments: This is a 31-year-old female who presents emergency Department with ALLERGIC reactions green [place] one. EMS was only able to give her Benadryl prior to arrival. Patient hives on both arms and was wheezing diffusely. Patient admitted she was a drug addict and did her last night but stated she didn't know heroin today. Patient is complaining of difficulty breathing. Patient states her arms itched. At this point in time she is using inhalers difficult to get any further history. - Related Data Previous Rx's Medication Instructions Recorded EPINEPHrine (Auto Inject) [Epipen] 0.3 mg IM ONCE PRN #2 each 10/10/21 predniSONE [Deltasone] 40 mg PO DAILY #8 tab 10/10/21 Allergies Allergy/AdvReac Type Severity Reaction Status Date / Time apple Allergy Swelling Verified 10/10/21 08:21 celery Allergy Swelling Verified 10/10/21 08:21 citric acid Allergy Swelling Verified 10/10/21 08:21 strawberry Allergy Swelling Verified 10/10/21 08:21 Review of Systems ROS Statement: Those systems with pertinent positive or pertinent negative responses have been documented in the HPI. ROS Other: All systems not noted in ROS Statement are negative. Past Medical History Past Medical History: Asthma, Renal Disease Additional Past Medical History / Comment(s): kidney disease History of Any Multi-Drug Resistant Organisms: MRSA Date of last positivie culture/infection: 2018 MDRO Source:: Face, and abdomen Past Surgical History: No Surgical Hx Reported Additional Past Surgical History / Comment(s): [place] tooth extraction Past Anesthesia/Blood Transfusion Reactions: No Reported Reaction Past Psychological History: Bipolar, Depression Smoking Status: Current every day smoker Past Alcohol Use History: Occasional Past Drug Use History: Heroin, Marijuana, Methamphetamine - Past Family History Mother Family Medical History: No Reported History General Exam - General Exam Comments Initial Comments: GENERAL: Patient is well-developed and well-nourished. Patient is nontoxic and well- hydrated and is in moderate distress. ENT: Neck is soft and supple. No significant lymphadenopathy is noted. Oropharynx is clear. Moist mucous membranes. Neck has full range of motion without eliciting any pain. EYES: The sclera were anicteric and conjunctiva were pink and moist. Extraocular movements were intact and pupils were equal round and reactive to light. Eyelids were unremarkable. PULMONARY: Patient is diffusely wheezing CARDIOVASCULAR: There is a regular rate and rhythm without any murmurs gallops or rubs. ABDOMEN: Soft and nontender with normal bowel sounds. SKIN: Patient has hives on both arms. NEUROLOGIC: Patient is alert and oriented x3. Cranial nerves II through XII are grossly intact. Motor and sensory are also intact. Normal speech, volume and content. Symmetrical smile. MUSCULOSKELETAL: Normal extremities with adequate strength and full range of motion. LYMPHATICS: No significant lymphadenopathy is noted PSYCHIATRIC: Normal psychiatric evaluation. Course Vital Signs 10/10/21 10/10/21 10/10/21 06:06 06:07 06:10 Temperature 98.1 F Pulse Rate 107 H 84 Respiratory 22 30 H Rate Blood Pressure 84/55 O2 Sat by Pulse 88 L Oximetry 10/10/21 10/10/21 10/10/21 06:15 06:35 06:49 Temperature Pulse Rate 60 116 H 94 Respiratory 20 38 H 34 H Rate Blood Pressure 114/90 O2 Sat by Pulse 92 L 93 L Oximetry 10/10/21 10/10/21 10/10/21 07:16 07:56 08:15 Temperature Pulse Rate 77 129 H 120 H Respiratory 18 18 18 Rate Blood Pressure 116/71 135/43 120/74 O2 Sat by Pulse 100 95 96 Oximetry Medical Decision Making - Medical Decision Making Patient was given Narcan because of her narcotic history she immediately became much more alert and she stated she was feeling terrible. Patient was also given epinephrine and Solu-Medrol and Pepcid in the emergency department. Patient was doing considerably better after the Ativan and Zofran. Patient was able to get up and ambulate without problem. Patient was able to drink water and hold it down. Patient did admit she was doing heroin this morning. Critical Care Time Critical Care Time: Yes Total Critical Care Time: 35 Disposition Clinical Impression: Heroin abuse, Anaphylactic reaction Disposition: HOME SELF-CARE Instructions (If sedation given, give patient instructions): Anaphylaxis (ED) Additional Instructions: Patient should take Benadryl when necessary for itching and swelling Patient should take epinephrine there is any difficulty breathing or throat swe lling. Prescriptions: predniSONE [Deltasone] 40 mg PO DAILY #8 tab EPINEPHrine (Auto Inject) [Epipen] 0.3 mg IM ONCE PRN #2 each PRN Reason: Anaphylaxis Is patient prescribed a controlled substance at d/c from ED?: No Referrals: None,Stated [Primary Care Provider] - 1-2 days Time of Disposition: 09:17
[2021-10-10] MEDS ORDERED: methylPREDNISolone SOD SUCCI 125 MG/2 ML VIAL IV STA (06:18)
[2021-10-10] MEDS ORDERED: FAMOTIDINE 20 MG/2 ML VIAL IV STA (06:19)
[2021-10-10] MEDS ORDERED: NALOXONE 0.4 MG/ML 1 ML VIAL IVP STA (06:21)
[2021-10-10] MEDS: LORazepam 2 MG/ML INJ IV STA ×2 (07:01→07:19)
[2021-10-10] MEDS ORDERED: ONDANSETRON 4 MG/2 ML VIAL IVP STA (07:12)
[2021-10-10 07:18] VITALS: RESP 18
--- NOTE | 2021-10-10 08:22 | XR ---
EXAMINATION TYPE: XR chest 2V DATE OF EXAM: 10/10/2021 COMPARISON: 10/21/2016 HISTORY: Chest pain TECHNIQUE: Frontal and lateral views of the chest are obtained. FINDINGS: There is no focal air space opacity. No evidence for pneumothorax. No pleural effusion. The cardiac silhouette size is within normal limits. The osseous structures are grossly intact. IMPRESSION: 1. No acute cardiopulmonary process.
[2021-10-10 10:11] VITALS: BP 110/66; PULSE 100
== END 2021-10-10 10:22 | disposition home or self-care (01) ==
LOC: EC 06:06
DX: F11.10 Opioid abuse, uncomplicated (principal); J45.909 Unspecified asthma, uncomplicated; F17.200 Nicotine dependence, unspecified, uncomplicated; Z91.018 Allergy to other foods; T78.2XXA Anaphylactic shock, unspecified, initial encounter
CPT/HCPCS: 99284; 96374; 96375; 96372; 94640; 71046; J0171; J2060; J2310; J2930; J2405

== ENCOUNTER 2021-11-01 11:39 | Emergency (ER) | payer OTHER ==
[2021-11-01 11:43] VITALS: RESP 18; TEMP 98
[2021-11-01] MEDS ORDERED: HYDROmorphone 1 MG/ML 1 ML SYRINGE IVP STA (11:54)
[2021-11-01] MEDS ORDERED: DIPH,PERTUS(ACELL)TETVAC-LF 0.5 ML VIAL IM ONE (11:59)
[2021-11-01] MEDS ORDERED: SODIUM CHLORIDE 0.9% 1,000 ML IV STA (11:59)
--- NOTE | 2021-11-01 12:06 | ED ---
General Adult HPI - General Chief complaint: Animal Bite Stated complaint: Dog bite Time Seen by Provider: 11/01/21 11:45 Source: patient, RN notes reviewed Mode of arrival: wheelchair Limitations: no limitations - History of Present Illness Initial comments: Patient is a pleasant 31-year-old female presenting to the emergency department following dog bite. Patient does admit to alcohol and drug use. Patient states she woke up and got up quickly and her old mastiff dog bit her on the face. Patient denies any other area of injury or trauma. No headache. No neck pain. No chest pain or dyspnea. No abdominal pain. No extremity injury. Patient denies any pain of the eye or any visual changes. - Related Data Previous Rx's Medication Instructions Recorded EPINEPHrine (Auto Inject) [Epipen] 0.3 mg IM ONCE PRN #2 each 10/10/21 predniSONE [Deltasone] 40 mg PO DAILY #8 tab 10/10/21 Allergies Allergy/AdvReac Type Severity Reaction Status Date / Time apple Allergy Swelling Verified 11/01/21 11:40 celery Allergy Swelling Verified 11/01/21 11:40 citric acid Allergy Swelling Verified 11/01/21 11:40 strawberry Allergy Swelling Verified 11/01/21 11:40 Review of Systems ROS Statement: Those systems with pertinent positive or pertinent negative responses have been documented in the HPI. ROS Other: All systems not noted in ROS Statement are negative. Constitutional: Denies: fever Eyes: Reports: as per HPI. Denies: eye pain, vision change ENT: Denies: ear pain Respiratory: Denies: cough Cardiovascular: Denies: chest pain Endocrine: Denies: fatigue Gastrointestinal: Denies: abdominal pain Genitourinary: Denies: dysuria Musculoskeletal: Denies: back pain Skin: Reports: as per HPI Neurological: Denies: headache, weakness, confusion Past Medical History Past Medical History: Asthma, Renal Disease Additional Past Medical History / Comment(s): kidney disease History of Any Multi-Drug Resistant Organisms: MRSA Date of last positivie culture/infection: 2019 MDRO Source:: Face, and abdomen Past Surgical History: No Surgical Hx Reported Additional Past Surgical History / Comment(s): [place] tooth extraction Past Anesthesia/Blood Transfusion Reactions: No Reported Reaction Past Psychological History: Bipolar, Depression Smoking Status: Current every day smoker Past Alcohol Use History: Occasional Past Drug Use History: Heroin, Marijuana, Methamphetamine - Past Family History Mother Family Medical History: No Reported History General Exam Limitations: no limitations General appearance: alert, in no apparent distress Head exam: Present: other (Facial laceration) Eye exam: Present: normal appearance, PERRL, EOMI ENT exam: Present: other (Facial laceration) Neck exam: Present: normal inspection. Absent: tenderness, meningismus Respiratory exam: Present: normal lung sounds bilaterally Cardiovascular Exam: Present: regular rate, normal rhythm GI/Abdominal exam: Present: soft. Absent: tenderness Extremities exam: Present: normal inspection Neurological exam: Present: alert, oriented X3, CN II-XII intact (Somewhat limited by trauma). Absent: motor sensory deficit Psychiatric exam: Present: normal affect, normal mood Skin exam: Present: other (Patient has a triangular flap above the left eyebrow, approximate 7 cm. Macerated left maxillary region laceration approximately 8 x 8 cm. Left forehead with 2 cm linear laceration.) Course Vital Signs 11/01/21 11:40 Temperature 98 F Pulse Rate 114 H Respiratory 18 Rate Blood Pressure 135/86 O2 Sat by Pulse 97 Oximetry Medical Decision Making - Medical Decision Making Patient reevaluated and updated. Case discussed with Dayan moseley, who will accept transfer Disposition Clinical Impression: Dog bite of face Disposition: OTHER INSTITUTION NOT DEFINED Condition: Serious Instructions (If sedation given, give patient instructions): Animal Bite (ED) Is patient prescribed a controlled substance at d/c from ED?: No Referrals: None,Stated [Primary Care Provider] - 1-2 days Time of Disposition: 12:21 - Out of Hospital Transfer - Req. Specs Out of Hospital Transfer - Requested Specifics: Other Emergency Center
[2021-11-01 12:29] LABS: Basophils % (A) 0 %; Eosinophils # (A) 0.6 k/uL (0-0.7); Eosinophils % (A) 8 %; HCT 37.6 % (34.0-46.0); HGB 12.5 gm/dL (11.4-16.0); Lymphocytes # (A) 3.4 k/uL (1.0-4.8); Lymphocytes % (A) 46 %; MCH 28.2 pg (25.0-35.0); MCHC 33.1 g/dL (31.0-37.0); MCV 85.3 fL (80.0-100.0); Mean Platelet Volume 7.1; Monocytes # (A) 0.4 k/uL (0-1.0); Monocytes % (A) 5 %; Neutrophils # (A) 2.7 k/uL (1.3-7.7); Neutrophils % (A) 37 %; Platelet Count 398 k/uL (150-450); RBC 4.41 m/uL (3.80-5.40); RDW 15.8 % (11.5-15.5); WBC 7.4 k/uL (3.8-10.6)
[2021-11-01 12:42] LABS: ALT 76 U/L (4-34); AST 66 U/L (14-36); African American GFR (CKD) >90 (>60 ml/min/1.73 sqM); Albumin 4.4 g/dL (3.5-5.0); Alcohol <10 mg/dL; Alkaline Phosphatase 85 U/L (38-126); Anion Gap 11 mmol/L; Blood Urea Nitrogen 13 mg/dL (7-17); Calcium 9.1 mg/dL (8.4-10.2); Carbon Dioxide 21 mmol/L (22-30); Chloride 103 mmol/L (98-107); Glucose 129 mg/dL (74-99); Non-African American GFR(CKD) >90 (>60 ml/min/1.73 sqM); Potassium 4.2 mmol/L (3.5-5.1); Sodium 135 mmol/L (137-145); Total Bilirubin 0.5 mg/dL (0.2-1.3)
[2021-11-01 12:46] LABS: INR 0.9 (<1.2); Partial Thromboplastin Time 22.8 sec (22.0-30.0); Prothrombin Time 10.4 sec (9.0-12.0)
[2021-11-01 13:11] VITALS: BP 128/68; PULSE 74
== END 2021-11-01 13:11 | disposition other institution (70) ==
LOC: EC 11:39
DX: S01.85XA Open bite of other part of head, initial encounter (principal); J45.909 Unspecified asthma, uncomplicated; F17.200 Nicotine dependence, unspecified, uncomplicated; Z91.018 Allergy to other foods; W54.0XXA Bitten by dog, initial encounter
CPT/HCPCS: 36415; 80053; 85025; 85610; 85730; 90715; 99283; 90471; 96365; 96375; 96361; G0480; J0690; J1170; 80320

== ENCOUNTER 2022-08-05 01:29 | Emergency (ER) | payer OTHER ==
--- NOTE | 2022-08-05 01:35 | ED ---
Overdose HPI - General Stated Complaint: Overdose Time Seen by Provider: 08/05/22 01:35 Source: RN notes reviewed, old records reviewed Limitations: no limitations - History of Present Illness Initial Comments: This is a 32-year-old female to the emergency room for evaluation patient presents for heroin overdose. Patient has no other complaints aside from heroin overdose. Complaint: accidental overdose -: minutes(s) Intent: unwilling to say How Overdose Was Discovered: called family/friend, family/friend present at time, called 911 Context: Intentional Overdose: drug/ETOH problems Associated Symptoms: depression Treatments Prior to Arrival: none - Related Data Previous Rx's Medication Instructions Recorded EPINEPHrine (Auto Inject) [Epipen] 0.3 mg IM ONCE PRN #2 each 10/10/21 predniSONE [Deltasone] 40 mg PO DAILY #8 tab 10/10/21 Allergies Allergy/AdvReac Type Severity Reaction Status Date / Time apple Allergy Swelling Verified 08/05/22 01:43 celery Allergy Swelling Verified 08/05/22 01:43 citric acid Allergy Swelling Verified 08/05/22 01:43 strawberry Allergy Swelling Verified 08/05/22 01:43 Review of Systems ROS Statement: Those systems with pertinent positive or pertinent negative responses have been documented in the HPI. ROS Other: All systems not noted in ROS Statement are negative. Past Medical History Past Medical History: Asthma, Renal Disease Additional Past Medical History / Comment(s): kidney disease History of Any Multi-Drug Resistant Organisms: MRSA Date of last positivie culture/infection: 2019 MDRO Source:: Face, and abdomen Past Surgical History: No Surgical Hx Reported Additional Past Surgical History / Comment(s): [place] tooth extraction Past Anesthesia/Blood Transfusion Reactions: No Reported Reaction Past Psychological History: Bipolar, Depression Smoking Status: Current every day smoker Past Alcohol Use History: Occasional Past Drug Use History: Heroin, Marijuana, Methamphetamine - Past Family History Mother Family Medical History: No Reported History General Exam General appearance: alert, in no apparent distress Head exam: Present: atraumatic, normocephalic, normal inspection Eye exam: Present: normal appearance, PERRL, EOMI. Absent: scleral icterus, conjunctival injection, periorbital swelling ENT exam: Present: normal exam, mucous membranes moist Neck exam: Present: normal inspection. Absent: tenderness, meningismus, lymphadenopathy Respiratory exam: Present: normal lung sounds bilaterally. Absent: respiratory distress, wheezes, rales, rhonchi, stridor Cardiovascular Exam: Present: regular rate, normal rhythm, normal heart sounds. Absent: systolic murmur, diastolic murmur, rubs, gallop, clicks GI/Abdominal exam: Present: soft, normal bowel sounds. Absent: distended, tenderness, guarding, rebound, rigid Extremities exam: Present: normal inspection, full ROM, normal capillary refill. Absent: tenderness, pedal edema, joint swelling, calf tenderness Back exam: Present: normal inspection Neurological exam: Present: alert, oriented X3, CN II-XII intact Psychiatric exam: Present: normal affect, normal mood Skin exam: Present: warm, dry, intact, normal color. Absent: rash Course Vital Signs 08/05/22 01:43 Temperature 98.2 F Pulse Rate 93 Respiratory 15 Rate Blood Pressure 115/80 O2 Sat by Pulse 95 Oximetry - Reevaluation(s) Reevaluation #1: 08/05/22 02:27 Record is reviewed Reevaluation #2: 08/05/22 02:28 Informed results and questions answered Reevaluation #3: 08/05/22 02:28 Is awake and alert no infection opiate currently on board. Patient can be discharged home Medical Decision Making - Medical Decision Making 32 female to the emergency department for evaluation of heroin overdose responding to Narcan. But in by EMS awake alert throughout ER stay can be discharged home Disposition Clinical Impression: Accidental drug overdose, Poisoning by opiates and related narcotics, other Disposition: HOME SELF-CARE Condition: Good Instructions (If sedation given, give patient instructions): Adult Overdose (ED) Is patient prescribed a controlled substance at d/c from ED?: No Referrals: None,Stated [Primary Care Provider] - 1-2 days Time of Disposition: 02:30
[2022-08-05 01:47] VITALS: RESP 15; TEMP 98.2
[2022-08-05 02:35] VITALS: BP 122/67; PULSE 88
== END 2022-08-05 02:35 | disposition home or self-care (01) ==
LOC: EC 01:29
DX: T40.1X1A Poisoning by heroin, accidental (unintentional), initial encounter (principal); J45.909 Unspecified asthma, uncomplicated; F17.200 Nicotine dependence, unspecified, uncomplicated; F12.90 Cannabis use, unspecified, uncomplicated; F11.90 Opioid use, unspecified, uncomplicated; F15.10 Other stimulant abuse, uncomplicated; Z91.018 Allergy to other foods
CPT/HCPCS: 99284

== ENCOUNTER 2022-09-17 17:14 | Emergency (ER) | payer OTHER ==
[2022-09-17 17:34] VITALS: TEMP 98
--- NOTE | 2022-09-17 19:39 | ED ---
General Adult HPI - General Chief complaint: Wound/Laceration Stated complaint: finger wound Time Seen by Provider: 09/17/22 19:01 Source: patient Mode of arrival: ambulatory Limitations: no limitations - History of Present Illness Initial comments: Patient is a 32-year-old female presenting with chief complaint of right index finger pain. Patient states the pain is been ongoing for a few days. 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 She has noticed some skin peeling around the distal end of the finger and thickening of the nail. No swelling or tenderness along the length of the finger. No redness, fever, chills. No discharge. - Related Data Previous Rx's Medication Instructions Recorded EPINEPHrine (Auto Inject) [Epipen] 0.3 mg IM ONCE PRN #2 each 10/10/21 predniSONE [Deltasone] 40 mg PO DAILY #8 tab 10/10/21 Ciclopirox 1 applic TOPICAL DAILY 90 Days #1 09/17/22 packet Allergies Allergy/AdvReac Type Severity Reaction Status Date / Time apple Allergy Swelling Verified 08/05/22 01:43 celery Allergy Swelling Verified 08/05/22 01:43 citric acid Allergy Swelling Verified 08/05/22 01:43 strawberry Allergy Swelling Verified 08/05/22 01:43 Review of Systems ROS Statement: Those systems with pertinent positive or pertinent negative responses have been documented in the HPI. ROS Other: All systems not noted in ROS Statement are negative. Past Medical History Past Medical History: Asthma, Renal Disease Additional Past Medical History / Comment(s): kidney disease History of Any Multi-Drug Resistant Organisms: MRSA Date of last positivie culture/infection: 2019 MDRO Source:: Face, and abdomen Past Surgical History: No Surgical Hx Reported Additional Past Surgical History / Comment(s): [place] tooth extraction Past Anesthesia/Blood Transfusion Reactions: No Reported Reaction Past Psychological History: Bipolar, Depression Smoking Status: Current every day smoker Past Alcohol Use History: Occasional Past Drug Use History: Heroin, Marijuana, Methamphetamine - Past Family History Mother Family Medical History: No Reported History General Exam Limitations: no limitations General appearance: alert, in no apparent distress Head exam: Present: atraumatic, normocephalic, normal inspection Eye exam: Present: normal appearance Neck exam: Present: normal inspection Neurological exam: Present: alert, oriented X3, CN II-XII intact Psychiatric exam: Present: normal affect, normal mood Skin exam: Present: other (Nail thickening and cracks near the skin of the distal index finger) Course Vital Signs 09/17/22 09/17/22 17:30 20:06 Temperature 98 F Pulse Rate 110 H 102 H Respiratory 20 16 Rate Blood Pressure 128/70 122/73 O2 Sat by Pulse 97 98 Oximetry Medical Decision Making - Medical Decision Making Was pt. sent in by a medical professional or institution (, [facility], AIRLINE STEWARDESS, urgent care, hospital, or half-way...) When possible be specific @ -No Did you speak to anyone other than the patient for history (EMS, parent, family, police, friend...)? What history was obtained from this source @ -No Did you review nursing and triage notes (agree or disagree)? Why? @ -I reviewed and agree with nursing and triage notes Were old charts reviewed (outside hosp., previous admission, EMS record, old EKG, old radiological studies, urgent care reports/EKG's, half-way records)? Report findings @ -No old charts were reviewed Differential Diagnosis (chest pain, altered mental status, abdominal pain women, abdominal pain men, vaginal bleeding, weakness, fever, dyspnea, syncope, headache, dizziness, GI bleed, back pain, seizure, CVA, palpatations, mental health)? @ -Differential includes onychomycosis, skin tear, cellulitis, this is not an all inclusive list EKG interpreted by me (3pts min.). @ -As above X-rays interpreted by me (1pt min.). @ -None done CT interpreted by me (1pt min.). @ -None done U/S interpreted by me (1pt. min.). @ -None done What testing was considered but not performed or refused? (CT, X-rays, U/S, labs)? Why? @ -None What meds were considered but not given or refused? Why? @ -None Did you discuss the management of the patient with other professionals (professionals i.e. MALLORY Grewal, AIRLINE STEWARDESS, lab, RT, psych nurse, social work administrator, roulette dealer, teacher, humane officer, heel caser)? Give summary @ -No Was smoking cessation discussed for >3mins.? @ -No Was critical care preformed (if so, how long)? @ -No Were there social determinants of health that impacted care today? How? (Homelessness, low income, unemployed, alcoholism, drug addiction, transportation, low edu. Level, literacy, decrease access to med. care, senior living, rehab)? @ -No Was there de-escalation of care discussed even if they declined (Discuss DNR or withdrawal of care, Hospice)? DNR status @ -No What co-morbidities impacted this encounter? (DM, HTN, Smoking, COPD, CAD, Cancer, CVA, ARF, Chemo, Hep., AIDS, mental health diagnosis, sleep apnea, morbid obesity)? @ -None Was patient admitted / discharged? Hospital course, mention meds given and route, prescriptions, significant lab abnormalities, going to OR and other pertinent info. @ -Patient is a 32-year-old female presenting with chief complaint of nail thickening and cracked skin near the distal end of her index finger. Examination appears consistent with onychomycosis. Patient is prescribed ciclopirox and instructed to follow-up with her PCP. Follow-up with PCP. Report back to ER with any new or worsening symptoms. Discussed return parameters and answered all questions. Patient conveyed verbal understanding and agreed to the plan. I discussed this case in detail with my attending Dr. Gonzalez Undiagnosed new problem with uncertain prognosis? @ -No Drug Therapy requiring intensive monitoring for toxicity (Heparin, Nitro, Insulin, Cardizem)? @ -No Were any procedures done? @ -No Diagnosis/symptom? @ -Onychomycosis Acute, or Chronic, or Acute on Chronic? @ -Acute Uncomplicated (without systemic symptoms) or Complicated (systemic symptoms)? @ -Uncomplicated Side effects of treatment? @ -No Exacerbation, Progression, or Severe Exacerbation? @ -No Poses a threat to life or bodily function? How? (Chest pain, [place], [place], pneumonia, PE, COPD, DKA, ARF, appy, cholecystitis, CVA, Diverticulitis, Homicidal, Suicidal, threat to staff... and all critical care pts) @ -No Disposition Clinical Impression: Nail fungus Disposition: HOME SELF-CARE Condition: Good Instructions (If sedation given, give patient instructions): Antifungals (On the skin) Additional Instructions: Follow-up with PCP. Report back to ER with any new or worsening symptoms. Take medication as prescribed. Prescriptions: Ciclopirox 1 applic TOPICAL DAILY 90 Days #1 packet Is patient prescribed a controlled substance at d/c from ED?: No Referrals: None,Stated [Primary Care Provider] - 1-2 days Time of Disposition: 19:39
[2022-09-17 20:07] VITALS: BP 122/73; PULSE 102; RESP 16
== END 2022-09-17 20:06 | disposition home or self-care (01) ==
LOC: EC 17:14
DX: B35.1 Tinea unguium (principal); J45.909 Unspecified asthma, uncomplicated; F31.9 Bipolar disorder, unspecified; F17.200 Nicotine dependence, unspecified, uncomplicated; F12.90 Cannabis use, unspecified, uncomplicated; F11.90 Opioid use, unspecified, uncomplicated; F15.10 Other stimulant abuse, uncomplicated; Z91.018 Allergy to other foods
CPT/HCPCS: 99283

== ENCOUNTER 2024-03-14 14:30 | Emergency (ER) | payer OTHER ==
[2024-03-14 14:46] VITALS: RESP 16
--- NOTE | 2024-03-14 15:26 | ED ---
Skin/Abscess/FB HPI - General Chief complaint: Skin/Abscess/Foreign Body Stated complaint: Face Infection Time Seen by Provider: 03/14/24 14:45 Source: patient, RN notes reviewed Mode of arrival: ambulatory Limitations: no limitations - History of Present Illness Initial comments: this is a 33-year-old female presents emergency department chief complaint of abscesses on her face. Patient states that she has a history of MRSA infection and is concerned that due to MRSA in the past. She denies fevers, chills, nausea, vomiting, abdominal pain. denies recent antibiotic use. no other acute complaints at this time. - Related Data Previous Rx's Medication Instructions Recorded EPINEPHrine (Auto Inject) [Epipen] 0.3 mg IM ONCE PRN #2 each 10/10/21 predniSONE [Deltasone] 40 mg PO DAILY #8 tab 10/10/21 Ciclopirox 1 applic TOPICAL DAILY 90 Days #1 09/17/22 packet Sulfamethox-Tmp 800-160Mg [Bactrim 1 each PO Q12HR #20 tab 03/14/24 Ds] Allergies Allergy/AdvReac Type Severity Reaction Status Date / Time apple Allergy Swelling Verified 03/14/24 14:46 celery Allergy Swelling Verified 03/14/24 14:46 citric acid Allergy Swelling Verified 03/14/24 14:46 strawberry Allergy Swelling Verified 03/14/24 14:46 Review of Systems ROS Statement: Those systems with pertinent positive or pertinent negative responses have been documented in the HPI. ROS Other: All systems not noted in ROS Statement are negative. Past Medical History Past Medical History: Asthma, Renal Disease Additional Past Medical History / Comment(s): kidney disease History of Any Multi-Drug Resistant Organisms: MRSA Date of last positivie culture/infection: 2019 MDRO Source:: Face, and abdomen Past Surgical History: No Surgical Hx Reported Additional Past Surgical History / Comment(s): [place] tooth extraction Past Anesthesia/Blood Transfusion Reactions: No Reported Reaction Past Psychological History: Bipolar, Depression Smoking Status: Current every day smoker Past Alcohol Use History: Occasional Past Drug Use History: Heroin, Marijuana, Methamphetamine - Past Family History Mother Family Medical History: No Reported History General Exam - General Exam Comments Initial Comments: Visual Physical Exam Vital signs reviewed General: Well-appearing, nontoxic, no acute distress. Head: Normocephalic, atraumatic Eyes: PERRLA, EOMI ENT: Airway patent Chest: Nonlabored breathing Skin: No visual rash, normal skin tone Neuro: Alert and oriented 3 Musculoskeletal: No gross abnormalities Limitations: no limitations General appearance: alert, in no apparent distress Head exam: Present: atraumatic, normocephalic, normal inspection Eye exam: Present: normal appearance, PERRL, EOMI. Absent: scleral icterus, conjunctival injection, periorbital swelling ENT exam: Present: normal exam, mucous membranes moist Neck exam: Present: normal inspection. Absent: tenderness, meningismus, lymphadenopathy Respiratory exam: Present: normal lung sounds bilaterally. Absent: respiratory distress, wheezes, rales, rhonchi, stridor Cardiovascular Exam: Present: regular rate, normal rhythm, normal heart sounds. Absent: systolic murmur, diastolic murmur, rubs, gallop, clicks GI/Abdominal exam: Present: soft, normal bowel sounds. Absent: distended, tenderness, guarding, rebound, rigid Extremities exam: Present: normal inspection, full ROM, normal capillary refill. Absent: tenderness, pedal edema, joint swelling, calf tenderness Back exam: Present: normal inspection Skin exam: Present: warm, dry, other (Multiple nodular abscesses on the face with overlying erythema, no purulence noted) Course Vital Signs 03/14/24 03/14/24 14:42 17:19 Temperature 98.0 F 98 F Pulse Rate 111 H 98 Respiratory 16 16 Rate Blood Pressure 125/71 127/89 O2 Sat by Pulse 93 L 97 Oximetry Medical Decision Making - Medical Decision Making Was pt. sent in by a medical professional or institution (, PA, DOCTOR OF MEDICINE, urgent care, hospital, or prison...) When possible be specific @ -No Did you speak to anyone other than the patient for history (EMS, parent, family, police, friend...)? What history was obtained from this source @ -No Did you review nursing and triage notes (agree or disagree)? Why? @ -I reviewed and agree with nursing and triage notes Were old charts reviewed (outside hosp., previous admission, EMS record, old EKG, old radiological studies, urgent care reports/EKG's, prison records)? Report findings @ -No old charts were reviewed Differential Diagnosis (chest pain, altered mental status, abdominal pain women, abdominal pain men, vaginal bleeding, weakness, fever, dyspnea, syncope, headache, dizziness, GI bleed, back pain, seizure, CVA, palpatations, mental health, musculoskeletal)? @ -MRSA infection, cellulitis, abscess, this list is not all inclusive EKG interpreted by me (3pts min.). @ -None X-rays interpreted by me (1pt min.). @ -None done CT interpreted by me (1pt min.). @ -None done U/S interpreted by me (1pt. min.). @ -None done What testing was considered but not performed or refused? (CT, X-rays, U/S, labs)? Why? @ -None What meds were considered but not given or refused? Why? @ -None Did you discuss the management of the patient with other professionals (professionals i.e. , PA, DOCTOR OF MEDICINE, lab, RT, psych nurse, social media coordinator, machinist mate, teacher, chief development officer, case briefer)? Give summary @ -No Was smoking cessation discussed for >3mins.? @ -No Was critical care preformed (if so, how long)? @ -No Were there social determinants of health that impacted care today? How? (Homelessness, low income, unemployed, alcoholism, drug addiction, transportation, low edu. Level, literacy, decrease access to med. care, half-way, rehab)? @ -No Was there de-escalation of care discussed even if they declined (Discuss DNR or withdrawal of care, Hospice)? DNR status @ -No What co-morbidities impacted this encounter? (DM, HTN, Smoking, COPD, CAD, Cancer, CVA, ARF, Chemo, Hep., AIDS, mental health diagnosis, sleep apnea, morbid obesity)? @ -None Was patient admitted / discharged? Hospital course, mention meds given and route, prescriptions, significant lab abnormalities, going to OR and other pertinent info. @ -Charge. 33-year-old female with multiple abscesses to the face. On examination patient noted to have multiple vaginal abscesses with no signs of purulence. Vital stable upon arrival. Labs including CBC, CMP, lactate within normal limits. Attempted to aspirate multiple abscesses on the face with no return of purulence. Patient will be discharged home with oral antibiotics. Strict return parameters discussed with the patient and all questions answered at bedside. Patient is verbalized understanding. Case discussed with Dr. Mendez. Undiagnosed new problem with uncertain prognosis? @ -No Drug Therapy requiring intensive monitoring for toxicity (Heparin, Nitro, Insulin, Cardizem)? @ -No Were any procedures done? @ -Needle aspiration of abscesses on face, unsuccessful. Diagnosis/symptom? @ -Abscesses of face, MRSA infection Acute, or Chronic, or Acute on Chronic? @ -Acute Uncomplicated (without systemic symptoms) or Complicated (systemic symptoms)? @ -Uncomplicated Side effects of treatment? @ -No Exacerbation, Progression, or Severe Exacerbation? @ -No Poses a threat to life or bodily function? How? (Chest pain, [place], [place], pneumonia, PE, COPD, DKA, ARF, appy, cholecystitis, CVA, Diverticulitis, Homicidal, Suicidal, threat to staff... and all critical care pts) @ -No - Lab Data Result diagrams: 03/14/24 15:57 03/14/24 15:57 Lab Results 03/14/24 03/14/24 03/14/24 Range/Units 15:57 15:57 15:57 WBC 7.7 (3.8-10.6) k/uL RBC 4.69 (3.80-5.40) m/uL Hgb 13.6 (11.4-16.0) gm/dL Hct 42.3 (34.0-46.0) % MCV 90.2 (80.0-100.0) fL MCH 29.0 (25.0-35.0) pg MCHC 32.2 (31.0-37.0) g/dL RDW 13.9 (11.5-15.5) % Plt Count 305 (150-450) k/uL MPV 7.4 Neutrophils % 79 % Lymphocytes % 14 % Monocytes % 2 % Eosinophils % 3 % Basophils % 0 % Neutrophils # 6.1 (1.3-7.7) k/uL Lymphocytes # 1.1 (1.0-4.8) k/uL Monocytes # 0.2 (0-1.0) k/uL Eosinophils # 0.2 (0-0.7) k/uL Basophils # 0.0 (0-0.2) k/uL Sodium 141 (137-145) mmol/L Potassium 4.3 (3.5-5.1) mmol/L Chloride 107 (98-107) mmol/L Carbon Dioxide 26 (22-30) mmol/L Anion Gap 8 mmol/L BUN 10 (7-17) mg/dL Creatinine 0.56 (0.52-1.04) mg/dL Est GFR (CKD-EPI)AfAm >90 (>60 ml/min/1.73 sqM) Est GFR (CKD-EPI)NonAf >90 (>60 ml/min/1.73 sqM) Glucose 122 H (74-99) mg/dL Plasma Lactic Acid James 0.9 (0.7-2.0) mmol/L Calcium 9.7 (8.4-10.2) mg/dL Total Bilirubin 0.5 (0.2-1.3) mg/dL AST 25 (14-36) U/L ALT 17 (4-34) U/L Alkaline Phosphatase 99 (38-126) U/L Total Protein 8.0 (6.3-8.2) g/dL Albumin 4.4 (3.5-5.0) g/dL Disposition Clinical Impression: MRSA cellulitis Disposition: HOME SELF-CARE Condition: Good Instructions (If sedation given, give patient instructions): MRSA (Methicillin- Resistant Staphylococcus Aureus) (ED) Additional Instructions: Return to the emergency department if symptoms worsen or not improve. Take full course of antibiotics as prescribed. Prescriptions: Sulfamethox-Tmp 800-160Mg [Bactrim Ds] 1 each PO Q12HR #20 tab Is patient prescribed a controlled substance at d/c from ED?: No Referrals: None,Stated [Primary Care Provider] - 1-2 days Time of Disposition: 16:46
[2024-03-14 16:08] LABS: Basophils % (A) 0 %; Eosinophils # (A) 0.2 k/uL (0-0.7); Eosinophils % (A) 3 %; HCT 42.3 % (34.0-46.0); HGB 13.6 gm/dL (11.4-16.0); Lymphocytes # (A) 1.1 k/uL (1.0-4.8); Lymphocytes % (A) 14 %; MCHC 32.2 g/dL (31.0-37.0); MCV 90.2 fL (80.0-100.0); Mean Platelet Volume 7.4; Monocytes # (A) 0.2 k/uL (0-1.0); Monocytes % (A) 2 %; Neutrophils # (A) 6.1 k/uL (1.3-7.7); Neutrophils % (A) 79 %; Platelet Count 305 k/uL (150-450); RBC 4.69 m/uL (3.80-5.40); RDW 13.9 % (11.5-15.5); WBC 7.7 k/uL (3.8-10.6)
[2024-03-14 16:24] LABS: ALT 17 U/L (4-34); AST 25 U/L (14-36); African American GFR (CKD) >90 (>60 ml/min/1.73 sqM); Albumin 4.4 g/dL (3.5-5.0); Alkaline Phosphatase 99 U/L (38-126); Anion Gap 8 mmol/L; Blood Urea Nitrogen 10 mg/dL (7-17); Calcium 9.7 mg/dL (8.4-10.2); Carbon Dioxide 26 mmol/L (22-30); Chloride 107 mmol/L (98-107); Glucose 122 mg/dL (74-99); Non-African American GFR(CKD) >90 (>60 ml/min/1.73 sqM); Potassium 4.3 mmol/L (3.5-5.1); Sodium 141 mmol/L (137-145); Total Bilirubin 0.5 mg/dL (0.2-1.3)
[2024-03-14 17:20] VITALS: BP 127/89; PULSE 98; TEMP 98
== END 2024-03-14 17:20 | disposition home or self-care (01) ==
LOC: EC 14:30
DX: L02.01 Cutaneous abscess of face (principal); B95.62 Methicillin resistant Staphylococcus aureus infection as the cause of diseases classified elsewhere; F17.200 Nicotine dependence, unspecified, uncomplicated; Z91.018 Allergy to other foods
CPT/HCPCS: 36415; 80053; 83605; 85025; 87070; 87075; 87077; 87186; 87205; 99283

== ENCOUNTER 2024-05-05 17:57 | Emergency (ER) | payer OTHER ==
[2024-05-05 18:16] VITALS: BP 131/60; PULSE 94; RESP 18; TEMP 97.8
--- NOTE | 2024-05-05 19:40 | ED ---
URI HPI - General Chief Complaint: Upper Respiratory Infection Stated Complaint: weakness,fever Time Seen by Provider: 05/05/24 19:30 Source: patient, RN notes reviewed Mode of arrival: ambulatory Limitations: no limitations - History of Present Illness Initial Comments: Quick Note: This is a 33-year-old female who presents to the emergency department for weakness, fevers, body aches, and nausea. Denies any vomiting or abdominal pain associated with this. Denies any sick contacts. Denies any chest pain or shortness of breath. - Related Data Previous Rx's Medication Instructions Recorded EPINEPHrine (Auto Inject) [Epipen] 0.3 mg IM ONCE PRN #2 each 10/10/21 predniSONE [Deltasone] 40 mg PO DAILY #8 tab 10/10/21 Ciclopirox 1 applic TOPICAL DAILY 90 Days #1 09/17/22 packet Sulfamethox-Tmp 800-160Mg [Bactrim 1 each PO Q12HR #20 tab 03/14/24 Ds] Allergies Allergy/AdvReac Type Severity Reaction Status Date / Time apple Allergy Swelling Verified 05/05/24 18:16 celery Allergy Swelling Verified 05/05/24 18:16 citric acid Allergy Swelling Verified 05/05/24 18:16 strawberry Allergy Swelling Verified 05/05/24 18:16 Review of Systems ROS Statement: Those systems with pertinent positive or pertinent negative responses have been documented in the HPI. ROS Other: All systems not noted in ROS Statement are negative. Past Medical History Past Medical History: Asthma, Renal Disease Additional Past Medical History / Comment(s): kidney disease History of Any Multi-Drug Resistant Organisms: MRSA Date of last positivie culture/infection: 03/14/24 MDRO Source:: Face Past Surgical History: No Surgical Hx Reported Additional Past Surgical History / Comment(s): [place] tooth extraction Past Anesthesia/Blood Transfusion Reactions: No Reported Reaction Past Psychological History: Bipolar, Depression Smoking Status: Current every day smoker Past Alcohol Use History: Occasional Past Drug Use History: Heroin, Marijuana, Methamphetamine - Past Family History Mother Family Medical History: No Reported History General Exam - General Exam Comments Initial Comments: Visual Physical Exam Vital signs reviewed General: Well-appearing, nontoxic, no acute distress. Head: Normocephalic, atraumatic Eyes: PERRLA, EOMI ENT: Airway patent Chest: Nonlabored breathing Skin: No visual rash, normal skin tone Neuro: Alert and oriented 3 Musculoskeletal: No gross abnormalities Limitations: no limitations Course Vital Signs 05/05/24 18:15 Temperature 97.8 F Pulse Rate 94 Respiratory 18 Rate Blood Pressure 131/60 O2 Sat by Pulse 100 Oximetry Medical Decision Making - Medical Decision Making I performed the QuickNote portion of this chart. Signed Elizabeth Reyes PA-C. Patient left AMA from the waiting room prior to full evaluation as well as completion and review of ordered testing. - Lab Data Lab Results 05/05/24 Range/Units 18:17 Influenza Type A (PCR) Not Detected (Not Detectd) Influenza Type B (PCR) Not Detected (Not Detectd) RSV (PCR) Not Detected (Not Detectd) SARS-CoV-2 (PCR) Not Detected (Not Detectd) Disposition Clinical Impression: Upper respiratory tract infection Disposition: LEFT AGAINST MEDICAL ADVICE Referrals: None,Stated [Primary Care Provider] - 1-2 days
== END 2024-05-05 21:39 | disposition left against medical advice (07) ==
LOC: EC 17:57
CPT/HCPCS: 87636; 99283